=== PATIENT | female | born 1990 | race American Indian/Alaskan Native ===

== ENCOUNTER 2021-10-22 16:15 | Emergency (ER) | payer MEDICAID ==
[2021-10-22 17:08] LABS: Basophils # (Auto) 0.1 K/mm3 (0.0-0.1); Basophils % (Auto) 1.2 % (0.0-1.8); Eosinophils # (Auto) 0.1 K/mm3 (0.0-0.4); Eosinophils % (Auto) 1.8 % (0.0-4.3); Hematocrit 33.4 % (30.3-42.9); Lymphocytes # (Auto) 1.6 K/mm3 (1.2-5.4); Lymphocytes % (Auto) 25.2 % (13.4-35.0); Mean Corpuscular HGB Conc 33 % (30-34); Mean Corpuscular Volume 80 fl (79-97); Monocytes # (Auto) 0.4 K/mm3 (0.0-0.8); Monocytes % (Auto) 7.2 % (0.0-7.3); Platelet Count 397 K/mm3 (140-440); Red Blood Count 4.19 M/mm3 (3.65-5.03); Red Cell Distribution Width 17.5 % (13.2-15.2)
[2021-10-22 18:20] LABS: Bacteria,Urine 1+ /HPF (Negative); Bilirubin,Urine NEG (Negative); Blood,Urine NEG (Negative); Color,Urine Yellow (Yellow); Mucus,Urine 3+ /HPF
--- NOTE | 2021-10-22 22:24 | Ultrasound Report ---
ULTRASOUND PELVIS INDICATION: vaginal bleeding. TECHNIQUE: Transabdominal. Duplex Color Doppler used: Yes. COMPARISON: None available FINDINGS: Uterus: Present. Size: 12 x 8.3 x 8.1 cm. Endometrial complex: Intrauterine dated 9 weeks 2 days by ultrasound. heart tones are 181 bpm. Mass lesions: None. Additional findings: None. Right Ovary -- Normal. Blood flow: Normal. Cyst or mass: None. Left Ovary-- Normal. Blood flow: Normal. Cyst or mass: None. Urinary Bladder: Normal. Free Fluid: None. Additional Findings: None. IMPRESSION: 1. Viable intrauterine dated 9 weeks 2 days by ultrasound. 2. No complication identified. Signer Name: Juan Jose Ward MD Signed: 10/22/2021 10:20 PM Workstation Name: [id number]
--- NOTE | 2021-10-22 23:56 | Emergency Department Report ---
ED Female HPI - General Chief complaint: Vaginal Bleeding Stated complaint: 9 WKS PREG/VAG BLEEDING Time Seen by Provider: 10/22/21 22:08 Source: patient Mode of arrival: Ambulatory Limitations: No Limitations - History of Present Illness Initial comments: 31-year-old female presents emergency department complaining of having a pink case substance from the vaginal canal with wiping. 0 pain. No urinary frequency or urgency, no trauma, no nausea, no vomiting no chest pain or palpitations no fever, chills, sweats. She was unsure if it was anything significant that she is never experienced this with her previous so decided to get it checked out and evaluate emergency department today. Complaint: vaginal bleeding - Related Data Allergies Allergy/AdvReac Type Severity Reaction Status Date / Time No Known Allergies Allergy Verified 10/22/21 16:36 ED Review of Systems ROS: Stated complaint: 9 WKS PREG/VAG BLEEDING Other details as noted in HPI Comment: All other systems reviewed and negative ED Physical Exam - General Limitations: No Limitations General appearance: alert, in no apparent distress - Head Head exam: Present: atraumatic, normocephalic - Eye Eye exam: Present: normal appearance, PERRL, EOMI Pupils: Present: normal accommodation - ENT ENT exam: Present: normal exam, normal orophraynx, mucous membranes moist, TM's normal bilaterally - Neck Neck exam: Present: normal inspection - Respiratory Respiratory exam: Present: normal lung sounds bilaterally. Absent: respiratory distress - Cardiovascular Cardiovascular Exam: Present: regular rate, normal rhythm. Absent: systolic murmur, diastolic murmur, rubs, gallop - GI/Abdominal GI/Abdominal exam: Present: soft, normal bowel sounds - Extremities Exam Extremities exam: Present: normal inspection - Back Exam Back exam: Present: normal inspection - Neurological Exam Neurological exam: Present: alert, oriented X3 - Psychiatric Psychiatric exam: Present: normal affect, normal mood - Skin Skin exam: Present: warm, dry, intact, normal color. Absent: rash ED Medical Decision Making - Lab Data Result diagrams: 10/22/21 16:51 - Radiology Data Radiology results: report reviewed [facility] [address] [place] [address] Ultrasound Report Signed Patient: ANNEMARIE MORSE MR#: [id number] : 1990 Acct:[id number] Age/Sex: 31 / F ADM Date: 10/22/21 Loc: ED Attending Dr: Ordering Physician: PROMISE MARQUEZ Date of Service: 10/22/21 Procedure(s): US OB <= 14 weeks fetus Accession Number(s): [id number] cc: PROMISE MARQUEZ ULTRASOUND PELVIS INDICATION: vaginal bleeding. TECHNIQUE: Transabdominal. Duplex Color Doppler used: Yes. COMPARISON: None available FINDINGS: Uterus: Present. Size: 12 x 8.3 x 8.1 cm. Endometrial complex: Intrauterine dated 9 weeks 2 days by ultrasound. heart tones are 181 bpm. Mass lesions: None. Additional findings: None. Right Ovary -- Normal. Blood flow: Normal. Cyst or mass: None. Left Ovary-- Normal. Blood flow: Normal. Cyst or mass: None. Urinary Bladder: Normal. Free Fluid: None. Additional Findings: None. IMPRESSION: 1. Viable intrauterine dated 9 weeks 2 days by ultrasound. 2. No complication identified. Signer Name: Juan Jose Ward MD Signed: 10/22/2021 10:20 PM Workstation Name: [id number] Transcribed By: ES Dictated By: Jaun Jose Ward MD Electronically Authenticated By: Juan Jose Ward MD Signed Date/Time: 10/22/212219 DD/ 17 TD/TT: Print Cancel - Medical Decision Making This patient presents with vaginal bleeding in the first trimester, differential diagnosis includes ectopic , IUP, month threatened/inevitable , along with a completed . Patient is HDS and without a history of coagulopathy or infectious symptoms. The ultrasound does reveal an IUP at 9 weeks with an elevated hCG quant Based on exam history and ED work-up patient presentation is not consistent with an ectopic , life-threatening coagulopathy, trauma, serious bacterial infection, central process or other emergency Critical care attestation.: If time is entered above; I have spent that time in minutes in the direct care of this critically ill patient, excluding procedure time. ED Disposition Clinical Impression: Threatened miscarriage Disposition: 01 HOME / SELF CARE / HOMELESS Is pt being admited?: No Does the pt Need Aspirin: No Condition: Stable Instructions: Vaginal Bleeding During , First Trimester, Threatened Miscarriage, [id number], Activity Restriction During Additional Instructions: He was seen in the emergency department for vaginal bleeding during . Ultrasound did show a viable at 9 weeks be sure to follow-up with your [facility]. We with you have an appointment scheduled on November 02 you may want to notify them to alert them of this emergency room visit as they may want to schedule an sooner appointment Referrals: [facility] [Provider Group] - 3-5 Days PRIMARY CARE, [Primary Care Provider] - 3-5 Days
== END 2021-10-23 00:12 | disposition home or self-care (01) ==
LOC: EDBD → ED 16:15
DX: O20.0 Threatened abortion (principal); Z3A.09 9 weeks gestation of pregnancy
CPT/HCPCS: 36415; 76801; 81001; 84702; 84703; 85025; 86900; 86901; 99284